=== PATIENT | male | born 1970 | race Hispanic/Latino ===

== ENCOUNTER 2017-10-12 04:17 | Emergency (ER) | payer SELFPAY ==
[2017-10-12] MEDS ORDERED: METHYLPREDNISOLONE SOD SUCC 125MG/2ML VIAL ONE (05:17)
[2017-10-12] MEDS ORDERED: SODIUM CHLORIDE 0.9% 1000ML 1,000 ML IV ONE (05:17)
[2017-10-12 05:41] LABS: BASOPHILS % (AUTO) 0.3 % (0.0-5.0); HEMATOCRIT 45.7 % (42-54); MEAN CORPUSCULAR HEMOGLOBIN 31.8 pg (27.0-33.0); MEAN CORPUSCULAR HGB CONC 34.2 g/dL (32.0-36.0); MEAN CORPUSCULAR VOLUME 92.8 fL (79-99); MONOCYTES % (AUTO) 8.7 % (3.0-13.0); PLATELET COUNT (AUTO) 199 K/uL (130-400); RED BLOOD CELL COUNT(AUTO) 4.92 MIL/uL (4.50-6.20); WHITE BLOOD COUNT (AUTO) 13.3 K/uL (4.8-10.8)
[2017-10-12] MEDS ORDERED: CEFTRIAXONE SODIUM 1 GM ONE (06:22)
== END 2017-10-12 08:01 | disposition home or self-care (01) ==
LOC: EDH 04:17
DX: K12.2 Cellulitis and abscess of mouth (principal); J02.9 Acute pharyngitis, unspecified; I10 Essential (primary) hypertension; Z79.899 Other long term (current) drug therapy
CPT/HCPCS: 36415; 85025; 87880; 96361; 96374; 96375; 99284; J0696; J2930; J7030

== ENCOUNTER 2020-07-02 08:39 | Emergency (ER) | payer SELFPAY ==
[2020-07-02] MEDS ORDERED: ASPIRIN 325 MG TABLET ONE (09:17)
[2020-07-02 09:23] LABS: EOSINOPHILS % (AUTO) 3.1 % (0.0-8.0); HEMATOCRIT 48.4 % (42-54); LYMPHOCYTES % (AUTO) 20.5 % (21.0-51.0); MEAN CORPUSCULAR HGB CONC 34.9 g/dL (32.0-36.0); MEAN CORPUSCULAR VOLUME 94.5 fL (79-99); MONOCYTES % (AUTO) 8.6 % (3.0-13.0); NEUTROPHILS % (AUTO) 66.3 % (40.0-77.0); PLATELET COUNT (AUTO) 182 K/uL (130-400); RED BLOOD CELL COUNT(AUTO) 5.12 MIL/uL (4.50-6.20); RED CELL DISTRIBUTION WIDTH 11.9 % (11.0-15.5); WHITE BLOOD COUNT (AUTO) 7.3 K/uL (4.8-10.8)
[2020-07-02 09:31] LABS: APPEARANCE,URINE Clear (CLEAR); BILIRUBIN,URINE Negative (NEGATIVE); COLOR,URINE Yellow (YELLOW); GLUCOSE, URINE (UA) Negative (NEGATIVE); KETONES,URINE Negative (NEGATIVE); LEUKOCYTE ESTERASE ,URINE Negative (NEGATIVE); NITRATE,URINE Negative (NEGATIVE); OCCULT BLOOD,URINE Negative (NEGATIVE); PROTEIN,URINE Negative (NEGATIVE); UROBILINOGEN,URINE 0.2 mg/dL (0.2-1.0)
[2020-07-02 09:32] LABS: CREATININE 0.9 mg/dL (0.5-1.5); POTASSIUM 3.7 mmol/L (3.5-5.1)
[2020-07-02 09:34] LABS: INR 0.97 (0.85-1.15); PARTIAL THROMBOPLASTIN TIME 26.9 SEC (26.3-35.5); PROTHROMBIN TIME 10.5 SEC (9.6-11.6)
[2020-07-02 09:38] LABS: ALBUMIN 3.6 g/dL (3.5-5.0); BILIRUBIN,TOTAL 0.2 mg/dL (0.2-1.0); TOTAL PROTEIN, SERUM 7.9 g/dL (6.0-8.3)
[2020-07-02 09:46] LABS: B-TYPE NATRIURETIC PEPTIDE < 5 pg/mL (0-100)
[2020-07-02 11:19] LABS: AMPHET/METH SCREEN,URINE NEGATIVE (NEGATIVE); BARBITURATE SCREEN, URINE NEGATIVE (NEGATIVE); BENZODIAZEPINES SCREEN,URINE NEGATIVE (NEGATIVE); CANNABINOID SCREEN,URINE NEGATIVE (NEGATIVE); COCAINE SCREEN,URINE NEGATIVE (NEGATIVE); OPIATE SCREEN,URINE NEGATIVE (NEGATIVE); PHENCYCLIDINE SCREEN,URINE NEGATIVE (NEGATIVE)
== END 2020-07-02 13:39 | disposition home or self-care (01) ==
LOC: EDH 08:39
DX: R07.89 Other chest pain (principal); I10 Essential (primary) hypertension; F41.9 Anxiety disorder, unspecified
CPT/HCPCS: 36415; 71045; 80053; 80305; 81003; 82550; 83880; 84484; 85025; 85610; 85730; 93005

== ENCOUNTER 2020-11-13 16:10 | Observation (INO) | payer OTHER ==
[~2020-11-13] VITALS: Ht 167.6 cm; Wt 96.9 kg
[2020-11-13 17:00] LABS: BASOPHILS % (AUTO) 0.6 % (0.0-5.0); HEMATOCRIT 49.5 % (42-54); LYMPHOCYTES % (AUTO) 19.5 % (21.0-51.0); MEAN CORPUSCULAR HEMOGLOBIN 33.2 pg (27.0-33.0); MEAN CORPUSCULAR HGB CONC 36.2 g/dL (32.0-36.0); MEAN CORPUSCULAR VOLUME 91.8 fL (79-99); MONOCYTES % (AUTO) 8.2 % (3.0-13.0); NEUTROPHILS % (AUTO) 69.1 % (40.0-77.0); PLATELET COUNT (AUTO) 238 K/uL (130-400); RED BLOOD CELL COUNT(AUTO) 5.39 MIL/uL (4.50-6.20); RED CELL DISTRIBUTION WIDTH 12.8 % (11.0-15.5); WHITE BLOOD COUNT (AUTO) 9.7 K/uL (4.8-10.8)
[2020-11-13 17:11] LABS: CREATININE 0.9 mg/dL (0.5-1.5); POTASSIUM 3.7 mmol/L (3.5-5.1)
[2020-11-13 17:13] LABS: INR 1.03 (0.85-1.15); PROTHROMBIN TIME 11.2 SEC (9.6-11.6)
[2020-11-13 17:14] LABS: PARTIAL THROMBOPLASTIN TIME 25.1 SEC (26.3-35.5)
[2020-11-13 17:16] LABS: BILIRUBIN,TOTAL 0.4 mg/dL (0.2-1.0); TOTAL PROTEIN, SERUM 8.6 g/dL (6.0-8.3)
[2020-11-13] MEDS ORDERED: LIDOCAINE HCL 2% VISCOUS 15 ML UDCUP ONE (18:45)
[2020-11-13 19:04] LABS: APPEARANCE,URINE Clear (CLEAR); BILIRUBIN,URINE Negative (NEGATIVE); COLOR,URINE Yellow (YELLOW); GLUCOSE, URINE (UA) Negative (NEGATIVE); KETONES,URINE Negative (NEGATIVE); LEUKOCYTE ESTERASE ,URINE Negative (NEGATIVE); NITRATE,URINE Negative (NEGATIVE); OCCULT BLOOD,URINE Negative (NEGATIVE); PROTEIN,URINE Negative (NEGATIVE); UROBILINOGEN,URINE 0.2 mg/dL (0.2-1.0)
[2020-11-13 19:11] LABS: AMPHET/METH SCREEN,URINE NEGATIVE (NEGATIVE); BARBITURATE SCREEN, URINE NEGATIVE (NEGATIVE); BENZODIAZEPINES SCREEN,URINE NEGATIVE (NEGATIVE); CANNABINOID SCREEN,URINE NEGATIVE (NEGATIVE); COCAINE SCREEN,URINE NEGATIVE (NEGATIVE); OPIATE SCREEN,URINE NEGATIVE (NEGATIVE); PHENCYCLIDINE SCREEN,URINE NEGATIVE (NEGATIVE)
[2020-11-13] MEDS: SODIUM CHLORIDE 0.9% 1000ML 1,000 ML IV SCH (20:00)
[2020-11-13] MEDS ORDERED: MORPHINE SULFATE 2 MG/ML 1ML SYG IV PRN (20:00)
[2020-11-13] MEDS ORDERED: ACETAMINOPHEN 325 MG TAB PO PRN ×2 (20:00)
[2020-11-13] MEDS ORDERED: ONDANSETRON HCL 4 MG/2 ML VIAL IV PRN (20:00)
[2020-11-13] MEDS: CLINDAMYCIN 600 MG/D5% WATER 50 ML IV SCH (20:00)
[2020-11-13 20:29] LABS: HEMOGLOBIN A1C 5.6 % (4.0-6.0)
[2020-11-13] MEDS: FAMOTIDINE/PF 20 MG/2 ML VIAL IV SCH (21:00)
[2020-11-14] VITALS (10 sets, daily range): BP systolic 102–139; BP diastolic 64–101
[2020-11-14] MEDS ORDERED: LABETALOL HCL 5 MG/ML 20ML VIAL IV PRN (00:30)
[2020-11-14] MEDS ORDERED: LORAZEPAM 2 MG/ML 1 ML VIAL IVP PRN (01:30)
[2020-11-14] MEDS ORDERED: ACETAMINOPHEN EXTRA STRENGTH 500 MG TABLET ONE (03:45)
[2020-11-14] MEDS ORDERED: PARO10TA71 PO (04:32)
[2020-11-14] MEDS ORDERED: HYDR12.54 (04:32)
[2020-11-14] MEDS ORDERED: LISI40TA9 PO (04:32)
[2020-11-14] MEDS ORDERED: ATEN50TA PO (04:32)
[2020-11-14] MEDS: SODIUM CHLORIDE 0.9% 1000ML 1,000 ML IV SCH (04:46)
[2020-11-14] MEDS: CLINDAMYCIN 600 MG/D5% WATER 50 ML IV SCH (04:46)
[2020-11-14 05:46] LABS: BASOPHILS % (AUTO) 0.7 % (0.0-5.0); EOSINOPHILS % (AUTO) 2.8 % (0.0-8.0); HEMATOCRIT 50.3 % (42-54); LYMPHOCYTES % (AUTO) 25.8 % (21.0-51.0); MEAN CORPUSCULAR HEMOGLOBIN 32.2 pg (27.0-33.0); MEAN CORPUSCULAR HGB CONC 34.4 g/dL (32.0-36.0); MEAN CORPUSCULAR VOLUME 93.7 fL (79-99); NEUTROPHILS % (AUTO) 59.8 % (40.0-77.0); PLATELET COUNT (AUTO) 230 K/uL (130-400); RED BLOOD CELL COUNT(AUTO) 5.37 MIL/uL (4.50-6.20); RED CELL DISTRIBUTION WIDTH 12.9 % (11.0-15.5); WHITE BLOOD COUNT (AUTO) 10.6 K/uL (4.8-10.8)
[2020-11-14 06:01] LABS: INR 1.05 (0.85-1.15); PROTHROMBIN TIME 11.4 SEC (9.6-11.6)
[2020-11-14 06:02] LABS: PARTIAL THROMBOPLASTIN TIME 27.5 SEC (26.3-35.5)
[2020-11-14 06:26] LABS: ALBUMIN 3.6 g/dL (3.5-5.0); BILIRUBIN,TOTAL 1.2 mg/dL (0.2-1.0); CRP QUANTITATIVE 15.7 mg/L (0.00-9.0); POTASSIUM 3.8 mmol/L (3.5-5.1); TOTAL PROTEIN, SERUM 7.9 g/dL (6.0-8.3)
[2020-11-14 06:52] LABS: ERYTHROCYTE SEDIMENTATION RATE 2 MM/HR (0-15)
[2020-11-14] MEDS ORDERED: Vitamin B Complex/Vit C/Folic Acid PO SCH (09:00)
[2020-11-14] MEDS ORDERED: MULTIVITAMIN TABLET PO SCH (09:00)
[2020-11-14] MEDS: HYDROCHLOROTHIAZIDE 25 MG TABLET PO SCH (09:18)
[2020-11-14] MEDS: THIAMINE HCL 100 MG TABLET PO SCH (09:20)
[2020-11-14] MEDS: LISINOPRIL 20 MG TABLET PO SCH (09:20)
[2020-11-14] MEDS: FAMOTIDINE/PF 20 MG/2 ML VIAL IV SCH ×2 (09:22→19:54)
[2020-11-14] MEDS ORDERED: PHARMACY COMMUNICATION MISC PRN (09:30)
[2020-11-14] MEDS ORDERED: CHLORDIAZEPOXIDE HCL 25 MG CAP PO PRN (09:30)
[2020-11-14] MEDS ORDERED: THIAMINE HCL 100 MG, FOLIC ACID 1 MG, M.V.I. IV [ADULT] 10 ML in SODIUM CHLORIDE 0.9% 1... IV SCH (10:00)
[2020-11-14] MEDS ORDERED: GADOTERATE MEGLUMINE 10 MMOL/20 ML VIAL IV ONE (10:30)
[2020-11-14] MEDS: LIDOCAINE HCL 2% VISCOUS 15 ML UDCUP PO PRN (14:39)
[2020-11-14] MEDS: LEVETIRACETAM 500 MG TABLET PO SCH (19:54)
[2020-11-15 04:32] VITALS: BP 91/62
[2020-11-15] MEDS: LIDOCAINE HCL 2% VISCOUS 15 ML UDCUP PO PRN (05:16)
[2020-11-15 06:07] LABS: BASOPHILS % (AUTO) 0.5 % (0.0-5.0); EOSINOPHILS % (AUTO) 4.1 % (0.0-8.0); HEMATOCRIT 49.8 % (42-54); LYMPHOCYTES % (AUTO) 24.8 % (21.0-51.0); MEAN CORPUSCULAR HEMOGLOBIN 31.9 pg (27.0-33.0); MEAN CORPUSCULAR HGB CONC 33.3 g/dL (32.0-36.0); MEAN CORPUSCULAR VOLUME 95.6 fL (79-99); MONOCYTES % (AUTO) 9.9 % (3.0-13.0); NEUTROPHILS % (AUTO) 59.7 % (40.0-77.0); PLATELET COUNT (AUTO) 200 K/uL (130-400); RED BLOOD CELL COUNT(AUTO) 5.21 MIL/uL (4.50-6.20); RED CELL DISTRIBUTION WIDTH 12.9 % (11.0-15.5); WHITE BLOOD COUNT (AUTO) 9.5 K/uL (4.8-10.8)
[2020-11-15 06:21] LABS: POTASSIUM 4.2 mmol/L (3.5-5.1)
[2020-11-15 07:16] LABS: HEPATITIS A ANTIBODY IGM Negative (Negative); HEPATITIS B CORE IGM Negative (Negative); HEPATITIS Bs ANTIGEN SCREEN P Negative (Negative)
[2020-11-15 07:30] VITALS: BP 108/68
[2020-11-15] MEDS ORDERED: PAROXETINE HCL 20 MG TABLET PO SCH (09:00)
[2020-11-15] MEDS: HYDROCHLOROTHIAZIDE 25 MG TABLET PO SCH (09:00)
[2020-11-15] MEDS ORDERED: ATENOLOL 50 MG TABLET PO SCH (09:00)
[2020-11-15] MEDS: FAMOTIDINE/PF 20 MG/2 ML VIAL IV SCH (09:28)
[2020-11-15] MEDS: LEVETIRACETAM 500 MG TABLET PO SCH (09:29)
[2020-11-15] MEDS: THIAMINE HCL 100 MG TABLET PO SCH (09:29)
[2020-11-15] MEDS: LISINOPRIL 20 MG TABLET PO SCH (09:38)
[2020-11-15 11:58] VITALS: BP 98/66
[2020-11-15 16:00] VITALS: BP 108/73
[2020-11-15] MEDS ORDERED: THIA500T3 PO (16:28)
[2020-11-15] MEDS ORDERED: LEVE-43 PO (16:28)
[2020-11-15] MEDS ORDERED: FOLI0.8T3 PO (16:28)
== END 2020-11-15 19:08 | disposition home or self-care (01) ==
LOC: EDH 16:10 → EDHIP 20:17 → 3CH 11-14 03:52
PROVIDERS: ADMIT Internal Medicine; ATTEND Internal Medicine
DX: R55 Syncope and collapse (principal); S01.511A Laceration without foreign body of lip, initial encounter; I10 Essential (primary) hypertension; F41.9 Anxiety disorder, unspecified; R74.01 Elevation of levels of liver transaminase levels; R00.0 Tachycardia, unspecified; F10.129 Alcohol abuse with intoxication, unspecified; W18.39XA Other fall on same level, initial encounter; Y93.89 Activity, other specified; Y92.89 Other specified places as the place of occurrence of the external cause
CPT/HCPCS: 36415 ×3; 70450; 70553; 71045; 80048; 80053 ×2; 80061; 80074; 80305; 81003; 82607; 82746; 83036; 84484 ×3; 85025 ×3; 85045; 85610 ×2; 85651; 85730 ×2; 86140; 93005 ×2; 93306; 93356; 93880; 95819; 96365; 96366; 96367; 96375; 96376 ×2; 99285; A6210; A9272; A9575; G0378 ×45; J3411; J3490 ×5; J7030 ×2

== ENCOUNTER 2023-01-17 10:42 | Emergency (ER) | payer BC, OTHER ==
[~2023-01-17] VITALS: Ht 167.6 cm; Wt 93.4 kg
[~2023-01-17 10:42] MED LIST: FOLI0.8T3 PO; HYDR12.54; LEVE-43 PO; LISI40TA9 PO; PARO10TA71 PO; THIA500T3 PO
[2023-01-17] MEDS ORDERED: KETOROLAC 60 MG VIAL (30MG/ML) IM ONE (12:30)
[2023-01-17] MEDS ORDERED: IBUP-2070 PO (12:59)
[2023-01-17 14:12] VITALS: BP 145/76
== END 2023-01-17 14:12 | disposition home or self-care (01) ==
LOC: EDH 10:42
DX: M54.41 Lumbago with sciatica, right side (principal); M47.817 Spondylosis without myelopathy or radiculopathy, lumbosacral region; I10 Essential (primary) hypertension; Z79.899 Other long term (current) drug therapy
CPT/HCPCS: 99284; 72131; 96372; J1885

== ENCOUNTER 2023-12-01 08:33 | Emergency (ER) | payer BC ==
[~2023-12-01] VITALS: Ht 167.6 cm; Wt 95.3 kg
[~2023-12-01 08:33] MED LIST changes: +IBUP-2070 PO
[2023-12-01] MEDS: LABETALOL 20MG SYG IV ONE (09:26)
[2023-12-01 09:37] LABS: BASOPHILS # (AUTO) 0.03 K/uL (0.00-0.20); BASOPHILS % (AUTO) 0.5 % (0.0-5.0); EOSINOPHILS # (AUTO) 0.33 K/uL (0.00-0.70); EOSINOPHILS % (AUTO) 5.2 % (0.0-8.0); HEMATOCRIT 49.5 % (42-54); IMMATURE GRANULOCYTE ABSOLUTE 0.04 K/uL (0-1); LYMPHOCYTES # (AUTO) 1.5 K/uL (1.0-4.8); MEAN CORPUSCULAR HEMOGLOBIN 31.8 pg (27.0-33.0); MEAN CORPUSCULAR HGB CONC 34.1 g/dL (32.0-36.0); MEAN CORPUSCULAR VOLUME 93.2 fL (79-99); MONOCYTES # (AUTO) 0.6 K/uL (0.1-1.0); MONOCYTES % (AUTO) 9.2 % (3.0-13.0); NEUTROPHILS # (AUTO) 3.9 K/uL (1.8-7.7); NEUTROPHILS % (AUTO) 60.5 % (40.0-77.0); PLATELET COUNT (AUTO) 200 K/uL (130-400); RED BLOOD CELL COUNT(AUTO) 5.31 MIL/uL (4.50-6.20); RED CELL DISTRIBUTION WIDTH 13.5 % (11.0-15.5); WHITE BLOOD COUNT (AUTO) 6.4 K/uL (4.8-10.8)
[2023-12-01 09:50] LABS: CREATININE 0.9 mg/dL (0.5-1.3); POTASSIUM 4.3 mmol/L (3.5-5.1)
[2023-12-01 10:05] LABS: ALBUMIN 3.7 g/dL (3.5-5.0); BILIRUBIN,TOTAL 1.3 mg/dL (0.2-1.0); TOTAL PROTEIN, SERUM 7.4 g/dL (6.0-8.3)
[2023-12-01 10:08] LABS: INR <= 0.93 (0.85-1.15)
[2023-12-01 10:09] LABS: PARTIAL THROMBOPLASTIN TIME 28.2 SEC (26.3-35.5)
[2023-12-01 10:18] VITALS: BP 132/86; PULSE 54; RESP 16; O2SAT 96
== END 2023-12-01 10:45 | disposition home or self-care (01) ==
LOC: EDH 08:33
DX: I10 Essential (primary) hypertension (principal); Z79.899 Other long term (current) drug therapy
CPT/HCPCS: 36415; 70450; 80053; 84484; 85025; 85610; 85730; 93005